=== PATIENT | male | born 1950 | race Caucasian/White ===

== ENCOUNTER 2018-09-15 09:52 | Outpatient (CLI) | payer MEDICARE, OTHER ==
[2018-09-15] MEDS ORDERED: CT SWABBABLE VALVE TRANS SET 1 EA INFUS.SET MC ONE (10:30)
[2018-09-15] MEDS ORDERED: IOHEXOL-350 100 ML VIAL IV ONE (10:30)
[2018-09-15] MEDS ORDERED: IV NS 0.9% 250 ML IV ONE (10:31)
[2018-09-15] MEDS ORDERED: NITROGLYCERIN 0.4 MG/TAB BOTTLE ONE (11:07)
== END 2018-09-15 23:59 | disposition home or self-care (01) ==
LOC: CT 09:52
PROVIDERS: ATTEND Internal Medicine Interventional Cardiology
DX: I25.10 Atherosclerotic heart disease of native coronary artery without angina pectoris (principal); I10 Essential (primary) hypertension; E78.5 Hyperlipidemia, unspecified; I20.9 Angina pectoris, unspecified; I22.9 Subsequent ST elevation (STEMI) myocardial infarction of unspecified site; R06.09 Other forms of dyspnea
CPT/HCPCS: 75574; J7050; Q9967

== ENCOUNTER 2018-12-31 10:24 | Inpatient (IN) | payer MEDICARE, OTHER ==
[~2018-12-31] VITALS: Ht 175.3 cm; Wt 103.9 kg
[2018-12-31 10:58] LABS: BASOPHILS % (AUTO) 0.5 % (0.0-2.0); EOSINOPHILS % (AUTO) 2.1 % (0.0-6.0); HEMATOCRIT 45 % (39-51); HEMOGLOBIN 14.9 g/dL (13.5-17.5); LYMPHOCYTES # (AUTO) 2.3 /CMM (0.8-4.8); LYMPHOCYTES % (AUTO) 23.3 % (20.0-44.0); MEAN CORPUSCULAR HGB CONC 33 g/dl (31.0-36.0); MEAN CORPUSCULAR VOLUME 91 fL (80-96); MONOCYTES # (AUTO) 0.9 /CMM (0.1-1.30); MONOCYTES % (AUTO) 9.8 % (2.0-12.0); NEUTROPHILS # (AUTO) 6.2 /CMM (1.8-8.9); NEUTROPHILS % (AUTO) 64.3 % (43.0-81.0); PLATELET COUNT (AUTO) 184 /CMM (150-450); RED BLOOD CELL COUNT(AUTO) 4.94 MIL/uL (4.5-6.0); WHITE BLOOD COUNT (AUTO) 9.6 K/uL (4.3-11.0)
[2018-12-31] MEDS ORDERED: ALBUTEROL FS 2.5 MG/3 ML VIAL.NEB ONE (11:00)
[2018-12-31] MEDS ORDERED: ALBUTEROL FS 2.5 MG/3 ML VIAL.NEB CONTNEB ONE (11:00)
[2018-12-31] MEDS ORDERED: methylPREDNISolone SOD SUCC 125 MG/2ML VIAL IV ONE (11:00)
[2018-12-31] MEDS ORDERED: IPRATROPIUM NEB FS 0.5 MG/2.5 ML AMPUL.NEB ONE (11:00)
[2018-12-31] MEDS ORDERED: ACETAMINOPHEN ES 500 MG TABLET PO ONE (11:00)
[2018-12-31] MEDS ORDERED: IPRATROPIUM NEB FS 0.5 MG/2.5 ML AMPUL.NEB NEB ONE (11:00)
[2018-12-31 11:01] LABS: CALCIUM, SERUM 9.8 mg/dL (8.5-10.1); CARBON DIOXIDE 29 mmol/L (21-32); CHLORIDE 102 mmol/L (98-107); GLUCOSE 120 mg/dL (74-106); POTASSIUM 4.3 mmol/L (3.5-5.1); SODIUM SERUM 139 mmol/L (136-145); UREA NITROGEN, BLOOD 13 mg/dL (7-18)
[2018-12-31 11:19] LABS: ALANINE AMINOTRANSFERASE 27 U/L (12-78); ALBUMIN 3.9 g/dL (3.4-5.0); ALKALINE PHOSPHATASE 62 U/L (46-116); ASPARTATE AMINOTRANSFERASE 17 U/L (15-37); BILIRUBIN,DIRECT 0.2 mg/dL (0.0-0.2); BILIRUBIN,TOTAL 0.8 mg/dL (0.2-1.0); TOTAL PROTEIN, SERUM 7.5 g/dL (6.4-8.2)
[2018-12-31] MEDS ORDERED: methylPREDNISolone SOD SUCC 125 MG/2ML VIAL ONE (11:21)
[2018-12-31] MEDS ORDERED: ACETAMINOPHEN 120 MG/SUPP.RECT RC ONE (11:21)
[2018-12-31] MEDS ORDERED: ACETAMINOPHEN ES 500 MG TABLET ONE (11:22)
--- NOTE | 2018-12-31 11:29 | NUR ---
Status quo NO obvious distress. Updated with plan of care awaiting admission/bed assignment
--- NOTE | 2018-12-31 11:43 | NUR ---
Nurse Knowledge Exchange with SHONA Gomez. No acute changes from initial assessment. No obvious distress both pt and family aware of plan of care. VS
[2018-12-31] MEDS ORDERED: ASPIRIN 81 MG TAB.CHEW PO ONE (12:00)
--- NOTE | 2018-12-31 12:05 | NUR ---
ADMISSION NOTE PT WAS RECEIVED AT THIS TIME. A/O X4, AMBULATORY, IV PATENT AND INTACT, NO S/S OF PAIN OR DISTRESS NOTED AT THIS TIME, SKIN DRY AND INTACT. BELONGINGS NOTED, FAMILY PRESENT AT BEDSIDE, SAFETY PRECAUTIONS IN PLACE, CALL LIGHT WITHIN REACH, WILL MONITOR ACCORDINGLY
[2018-12-31] MEDS ORDERED: MAGNESIUM HYDROXIDE 30 ML UDC PO PRN (13:30)
[2018-12-31] MEDS ORDERED: ONDANSETRON HCL/PF 4 MG/2 ML VIAL IVP PRN (13:30)
[2018-12-31] MEDS ORDERED: MAG HYDROX/AL HYDROX/SIMETH 30 ML UDC PO PRN (13:30)
[2018-12-31] MEDS ORDERED: ACETAMINOPHEN 325 MG TABLET PO PRN (13:30)
[2018-12-31] MEDS ORDERED: Z GUARD REMEDY 2 OZ OINT TP PRN (13:30)
[2018-12-31] MEDS ORDERED: ZOLPIDEM TARTRATE 5 MG TABLET PO PRN (13:30)
[2018-12-31] MEDS ORDERED: ASPI-1152 PO (13:39)
[2018-12-31] MEDS ORDERED: ROSU20TA31 PO (13:39)
[2018-12-31] MEDS ORDERED: CLOP75TA15 PO (13:39)
[2018-12-31] MEDS ORDERED: ERGO500040 PO (13:39)
[2018-12-31] MEDS ORDERED: CYAN500T2 PO (13:39)
[2018-12-31] MEDS ORDERED: METO-357 PO (13:39)
[2018-12-31] MEDS ORDERED: FOLI1TAB16 PO (13:39)
[2018-12-31] MEDS ORDERED: DILT120C51 PO (13:39)
[2018-12-31] MEDS: IPRATROPIUM NEB FS 0.5 MG/2.5 ML AMPUL.NEB NEB SCH ×3 (15:41→23:41)
[2018-12-31] MEDS: ALBUTEROL FS 2.5 MG/3 ML VIAL.NEB NEB SCH ×3 (15:41→23:41)
[2018-12-31 16:00] VITALS: BP 131/73
[2018-12-31] MEDS ORDERED: CLOPIDOGREL BISULFATE 75 MG TABLET PO SCH (17:00)
--- NOTE | 2018-12-31 18:20 | NUR ---
RN CLOSING NOTE PT IN BED AT LOWEST AND LOCKED POSITION WITH SIDE RAILS UP X2, A/O X4, BREATHING EVEN AND UNLABORED ON 2L VIA NC, NO COMPLAINTS OF PAIN OR DISTRESS NOTED, PT IS AMBULATORY, IV IS PATENT AND INTACT, MEDS WERE RECONCILED, SAFETY PRECAUTIONS IN PLACE, CALL LIGHT WITHIN REACH, WILL ENDORSE TO MANAGER ASSISTED LIVING RN FOR ALVARO.
--- NOTE | 2018-12-31 19:15 | NUR ---
DIRECTOR PRODUCT DEVELOPMENT NOTES RECEIVED ON BED A/O X3-4,NO SOB,O2 IN USED AT 2L/NC TO KEEP O2 SAT ABOVE 90%.SALINE LOCK RIGHT AC INTACT AND PATENT.CLAIMED CHEST PAIN ON AND OFF, 3 ON PAIN SCALE AT THE MOMENT.CALL LIGHT IN REACH,NEEDS ANTICIPATED.
[2018-12-31 20:00] VITALS: BP 132/61
[2018-12-31 20:01] VITALS: BP 132/61
[2018-12-31] MEDS: HYDROCODONE/APAP 5/325MG 1 EACH TABLET PO PRN (20:21)
--- NOTE | 2018-12-31 20:21 | NUR ---
RAILROAD DINING CAR STEWARD/STEWARDESS NOTES SR-90 ON TELE MONITOR,C/O LEFT SIDE CHEST PAIN 7/10 ON PAIN SCALE.MEDICATED WITH NORCO 5/325MG,1TAB PO ORDERED.
[2019-01-01] VITALS: BP 127/59
[2019-01-01] MEDS: HYDROCODONE/APAP 5/325MG 1 EACH TABLET PO PRN (02:43)
--- NOTE | 2019-01-01 02:43 | NUR ---
DATA BASE ADMINISTRATOR NOTES AWAKE,C/O LEFT CHEST PAIN ABOUT 6/10 ON PAIN SCALE WHEN HE BREATH,SR-93 ON TELE MONITOR, BLOOD PRESSURE 137/68,PULSE-86. MEDICATED WITH NORCO 5/325.1 TAB PO ORDERED FOR MODERATE PAIN.
[2019-01-01] MEDS: IPRATROPIUM NEB FS 0.5 MG/2.5 ML AMPUL.NEB NEB SCH ×3 (03:42→11:10)
[2019-01-01] MEDS: ALBUTEROL FS 2.5 MG/3 ML VIAL.NEB NEB SCH ×3 (03:42→11:10)
[2019-01-01 04:00] VITALS: BP 117/76
--- NOTE | 2019-01-01 06:12 | NUR ---
FORK TRUCK DRIVER NOTES ON BED A/O X4,PAIN TOLERABLE AT THIS TIME,PAIN MANAGEMENT EFFECTIVE.O2 IN USED ON AND OFF TO KEEP O2 SAT ABOVE 90%.IN NO ACUTE DISTRESS.WILL ENDORSE TO DAY NURSE FOR ALVARO.
[2019-01-01 06:36] LABS: BASOPHILS % (AUTO) 0.2 % (0.0-2.0); HEMATOCRIT 41 % (39-51); HEMOGLOBIN 13.7 g/dL (13.5-17.5); LYMPHOCYTES # (AUTO) 0.7 /CMM (0.8-4.8); LYMPHOCYTES % (AUTO) 6.2 % (20.0-44.0); MEAN CORPUSCULAR HGB CONC 34 g/dl (31.0-36.0); MEAN CORPUSCULAR VOLUME 89 fL (80-96); MONOCYTES # (AUTO) 0.5 /CMM (0.1-1.30); NEUTROPHILS # (AUTO) 10.7 /CMM (1.8-8.9); NEUTROPHILS % (AUTO) 89.6 % (43.0-81.0); PLATELET COUNT (AUTO) 167 /CMM (150-450); RED BLOOD CELL COUNT(AUTO) 4.56 MIL/uL (4.5-6.0)
[2019-01-01 06:42] LABS: CALCIUM, SERUM 9.7 mg/dL (8.5-10.1); CREATININE 1.2 mg/dL (0.6-1.3); MAGNESIUM 1.9 mg/dL (1.8-2.4); PHOSPHORUS 2.7 mg/dL (2.5-4.9)
--- NOTE | 2019-01-01 07:31 | NUR ---
HOT METAL CRANE OPERATOR OPENING NOTE RECEIVED PT IN BED, AWAKE AND VERBALLY RESPONSIVE; A/O X4. IN NO ANY PAIN OR DISTRESS AT THIS TIME. ON TELEMONITORING WITH CURRENT READING OF NORMAL SINUS RHYTHM AND HEART RHYTHM AT 80S, NO COMPLAIN OF CARDIAC DISTRESS VOICED. ON OXYGEN AT 2LPM, WITHOUT SOB NOTED. PIV TO RAC G20, INTACT AND PATENT. SAFETY MEASURES OBSERVED, BED LOW AND LOCKED POSITION WITH SIDERAILS UP X2. CALL LIGHT KEPT WITHIN REACH. WILL CONTINUE TO MONITOR.
[2019-01-01 08:00] VITALS: BP 128/75
[2019-01-01] MEDS ORDERED: IPRA0.2S9 NEB (08:39)
[2019-01-01] MEDS ORDERED: ALBUT2 NEB (08:39)
[2019-01-01] MEDS ORDERED: PRED50TA PO (08:39)
[2019-01-01] MEDS ORDERED: AZIT250T13 PO (08:43)
[2019-01-01 08:48] VITALS: BP 128/75
[2019-01-01] MEDS ORDERED: ASPIRIN EC 81 MG TABLET.DR PO SCH (09:00)
[2019-01-01] MEDS ORDERED: methylPREDNISolone SOD SUCC 125 MG/2ML VIAL IV SCH (09:00)
[2019-01-01] MEDS ORDERED: CYANOCOBALAMIN 500 MCG TABLET PO SCH (09:00)
[2019-01-01] MEDS ORDERED: METOPROLOL SUCCINATE 50 MG TAB.SR.24H PO SCH (09:00)
[2019-01-01] MEDS ORDERED: DILTIAZEM HCL CD 120 MG PO SCH (09:00)
[2019-01-01] MEDS ORDERED: ATORVASTATIN 40 MG TABLET PO SCH (09:00)
[2019-01-01] MEDS ORDERED: FOLIC ACID 1 MG TABLET PO SCH (09:00)
--- NOTE | 2019-01-01 09:45 | NUR ---
RN NOTES PT SEEN AND EVALUATED BY DR MONROE WITH ORDERS TO DO ECHOCARDIOGRAM AND DC TELEMONITORING.
--- NOTE | 2019-01-01 11:41 | NUR ---
HANDKERCHIEF SAMPLE CLERK NOTES PATIENT DISCHARGED HOME IN STABLE CONDITION. A/O X4 AND VERBALLY RESPONSIVE. MD GAVE ORDER FOR DISCHARGE TO HOME WITH PRESCRIPTIONS NOTED FOR ORAL ANTIBIOTIC, PREDNISONE AND BREATHING TREATMENTS. SKIN IS INTACT. DISCHARGE INSTRUCTIONS GIVEN AND VERBALIZED UNDERSTANDING. ALL BELONGINGS ACCOUNTED FOR AND SIGNED FORM. ALL NEEDS ATTENDED WELL. VS STABLE. NO RESPIRATORY AND CARDIAC DISTRESS NOTED. NO PAIN VERBALIZED. AND LEFT THE FACILITY AT 1135 ESCORTED DOWN BY RN TO THE LOBBY. MD AND CHARGE NURSE AWARE OF DISCHARGE.
[2019-01-06] MEDS ORDERED: ERGOCALCIFEROL (VITAMIN D 2) 50,000 UNIT CAPSULE PO SCH (15:30)
== END 2019-01-01 11:30 | disposition home or self-care (01) | DRG 192 ==
LOC: ER 10:25 → TELE 11:49
PROVIDERS: ADMIT Family Medicine; ATTEND Family Medicine
DX: J44.1 Chronic obstructive pulmonary disease with (acute) exacerbation (principal); I25.10 Atherosclerotic heart disease of native coronary artery without angina pectoris; I10 Essential (primary) hypertension; E66.9 Obesity, unspecified; Z95.1 Presence of aortocoronary bypass graft; Z68.33 Body mass index [BMI] 33.0-33.9, adult; Z87.891 Personal history of nicotine dependence; Z95.5 Presence of coronary angioplasty implant and graft; R07.89 Other chest pain
CPT/HCPCS: 36415; 71045-TC; 80048-TC; 80061-TC; 80076-TC; 83735-TC; 83880; 84100-TC; 84484-TC; 85025-TC; 87040-TC; 87081-TC; 87400; 93307-TC; 94799-TC; G0378; J2930

== ENCOUNTER 2020-01-25 21:21 | Emergency (ER) | payer MEDICARE, OTHER ==
[~2020-01-25] VITALS: Ht 175.3 cm; Wt 95.3 kg
[~2020-01-25 21:21] MED LIST: ALBUT2 NEB; ASPI-1152 PO; AZIT250T13 PO; CLOP75TA15 PO; CYAN500T64 PO; DILT120C51 PO; ERGO500040 PO; FOLI1TAB16 PO; IPRA0.2S9 NEB; METO-357 PO; PRED50TA PO; ROSU20TA32 PO
--- NOTE | 2020-01-25 21:38 | NUR ---
BIBSELF C/O URINARY RETENTION X10 DAYS. -HEMATURIA, +DYSURIA, -FLANK PAIN RECENTLY FINISHED RX 7 DAY COURSE BACTRIM ON 01/22/20; PT TO BED 12, AWAKE, ALERT, -SOB, PLACED ON MONITOR, VSS, PENDING MD LUONG
[2020-01-25 22:00] LABS: APPEARANCE,URINE Clear (CLEAR); BILIRUBIN,URINE Negative (NEGATIVE); BLOOD, URINE Small Ery/uL (NEGATIVE); COLOR,URINE Yellow (YELLOW); KETONES,URINE Negative (NEGATIVE); LEUKOCYTE ESTERASE ,URINE Negative (NEGATIVE); NITRITE, URINE Negative (NEGATIVE); PROTEIN,URINE Trace mg/dl (NEGATIVE); UGLUCOSE Negative (NEGATIVE); UROBILINOGEN,URINE 0.2 EU/dL (0.2)
[2020-01-25 22:11] LABS: BACTERIA,URINE Rare /HPF (None Seen); SQUAMOUS EPITHELIAL CELL,UR Few /HPF (None Seen); WBC,URINE NONE SEEN /HPF (0-3)
[2020-01-25] MEDS ORDERED: LIDOCAINE 2% JEL UROJET 10 ML MM ONE (22:14)
--- NOTE | 2020-01-25 22:15 | NUR ---
UNABLE TO SUCCESSFULLY INSERT F/C, DR. SANCHEZ AWARE; PER , HE WILL DO NICOLE, THEN POSSIBLY CT SCAN
--- NOTE | 2020-01-26 01:30 | NUR ---
Patient discharged to home in stable condition. Written and verbal after care instructions given. Patient verbalizes understanding of instruction.IV removed. Catheter intact and site benign. Pressure and 4x4 applied to site. No bleeding noted.pT ambulatory with a steady gait
[2020-01-26 05:05] VITALS: BP 118/84
== END 2020-01-26 01:30 | disposition home or self-care (01) ==
LOC: ER 21:24
DX: R39.11 Hesitancy of micturition (principal); I10 Essential (primary) hypertension; Z95.5 Presence of coronary angioplasty implant and graft; Z79.82 Long term (current) use of aspirin; Z79.899 Other long term (current) drug therapy
CPT/HCPCS: 74176; 81001; 82962; 87086; 99284; J3490; 81000-TC

== ENCOUNTER 2024-02-29 11:19 | Inpatient (IN) | payer MEDICARE, OTHER ==
[~2024-02-29] VITALS: Ht 175.3 cm; Wt 98.4 kg
[~2024-02-29 11:19] MED LIST changes: -ASPI-1152 PO; +ASPI-1420 PO; -CYAN500T64 PO; +CYAN500T9 PO
[2024-02-29 11:48] LABS: BASOPHILS % (AUTO) 0.1 % (0.0-2.0); HEMATOCRIT 49 % (39-51); HEMOGLOBIN 16.5 g/dL (13.5-17.5); LYMPHOCYTES # (AUTO) 2.1 K/uL (0.8-4.8); LYMPHOCYTES % (AUTO) 9.2 % (20.0-44.0); MEAN CORPUSCULAR HEMOGLOBIN 30 PG (26.0-33.0); MEAN CORPUSCULAR HGB CONC 34 g/dl (31.0-36.0); MEAN CORPUSCULAR VOLUME 90 fL (80-96); MONOCYTES % (AUTO) 4.1 % (2.0-12.0); NEUTROPHILS # (AUTO) 20.1 K/uL (1.8-8.9); NEUTROPHILS % (AUTO) 86.6 % (43.0-81.0); PLATELET COUNT (AUTO) 137 K/uL (150-450); RED CELL DISTRIBUTION WIDTH 16.6 % (11.5-15.0); WHITE BLOOD COUNT (AUTO) 23.3 K/uL (4.3-11.0)
[2024-02-29 11:54] LABS: CALCIUM, SERUM 10.1 mg/dL (8.5-10.1); CARBON DIOXIDE 30 mmol/L (21-32); CHLORIDE 95 mmol/L (98-107); CREATININE 2.3 mg/dL (0.6-1.3); GLUCOSE 188 mg/dL (74-106); POTASSIUM 4.6 mmol/L (3.5-5.1); SODIUM SERUM 133 mmol/L (136-145); UREA NITROGEN, BLOOD 31 mg/dL (7-18)
[2024-02-29 12:07] LABS: ALANINE AMINOTRANSFERASE 44 U/L (12-78); ALBUMIN 3.7 g/dL (3.4-5.0); ALKALINE PHOSPHATASE 62 U/L (46-116); ASPARTATE AMINOTRANSFERASE 28 U/L (15-37); BILIRUBIN,DIRECT 0.7 mg/dL (0.0-0.2); BILIRUBIN,TOTAL 1.7 mg/dL (0.2-1.0); LIPASE 66 U/L (16-77); NT-PRO BNP 1303 pg/mL (0-125)
[2024-02-29] MEDS ORDERED: CEFTRIAXONE 1GM BAG (ER ONLY) 50 ML IV ONE (12:28)
[2024-02-29] MEDS: CEFTRIAXONE 1GM BAG (ER ONLY) 50 ML IV ONE (12:30)
[2024-02-29 13:06] LABS: LACTIC ACID 4.4 mmol/L (0.4-2.0)
[2024-02-29 13:11] LABS: INR 1.47 (0.91-1.10); PARTIAL THROMBOPLASTIN TIME 32.8 SEC (24.3-34.3); PROTHROMBIN TIME 15.2 SECS (9.2-11.1)
[2024-02-29] MEDS: AZITHROMYCIN 500 MG in IV D5W 250 ML IV ONE (13:15)
[2024-02-29] MEDS ORDERED: FINA5TAB4 PO (13:23)
[2024-02-29] MEDS ORDERED: CLOP75TA15 PO (13:23)
[2024-02-29] MEDS ORDERED: ASPI-1169 PO (13:23)
[2024-02-29] MEDS ORDERED: LINA5TAB PO (13:23)
[2024-02-29] MEDS ORDERED: MECL-159 PO (13:23)
[2024-02-29] MEDS ORDERED: ROSU20TA2 PO (13:23)
[2024-02-29] MEDS ORDERED: PANT40TA49 PO (13:23)
[2024-02-29] MEDS ORDERED: MIRT-91 PO (13:23)
[2024-02-29] MEDS ORDERED: ERGO500093 PO (13:23)
[2024-02-29] MEDS ORDERED: FLUT1BLS6 IH (13:23)
[2024-02-29] MEDS ORDERED: ICOS1CAP PO (13:23)
[2024-02-29] MEDS ORDERED: CLON0.1T PO (13:23)
[2024-02-29] MEDS ORDERED: LINA145C PO (13:23)
[2024-02-29 13:45] LABS: APPEARANCE,URINE Clear (CLEAR); BILIRUBIN,URINE MODERATE (NEGATIVE); BLOOD, URINE Negative Ery/uL (NEGATIVE); COLOR,URINE ORANGE (YELLOW); KETONES,URINE Trace mg/dL (NEGATIVE); LEUKOCYTE ESTERASE ,URINE Negative (NEGATIVE); NITRITE, URINE Positive (NEGATIVE); PROTEIN,URINE 100 mg/dl (NEGATIVE); UGLUCOSE Negative (NEGATIVE)
[2024-02-29 13:59] LABS: ADD URINE CULTURE YES; BACTERIA,URINE Moderate /HPF (None Seen); SQUAMOUS EPITHELIAL CELL,UR Few /HPF (None Seen); URINE AMORPHOUS URATE Moderate /HPF (None Seen)
[2024-02-29] MEDS ORDERED: DEXTROSE 50%-WATER 50 ML DISP.SYRIN IV PRN (14:00)
[2024-02-29] MEDS ORDERED: MORPHINE SULFATE INJ 2 MG/ML DISP.SYRIN IV PRN (14:00)
[2024-02-29] MEDS ORDERED: MAG HYDROX/AL HYDROX/SIMETH 30 ML UDC PO PRN (14:00)
[2024-02-29] MEDS ORDERED: MIRTAZAPINE 15 MG TABLET PO PRN (14:00)
[2024-02-29] MEDS ORDERED: ALBUTEROL FS 2.5 MG/3 ML VIAL.NEB NEB PRN (14:00)
[2024-02-29] MEDS ORDERED: LINZESS 145 MCG XX SCH (14:00)
[2024-02-29] MEDS ORDERED: HYDROCODONE/APAP 5/325MG TABLET PO PRN (14:00)
[2024-02-29] MEDS ORDERED: MECLIZINE HCL 25 MG TABLET PO PRN (14:00)
[2024-02-29] MEDS ORDERED: CLONIDINE HCL 0.1 MG TABLET PO PRN (14:00)
[2024-02-29] MEDS ORDERED: IPRATROPIUM NEB FS 0.5 MG/2.5 ML AMPUL.NEB NEB PRN (14:00)
[2024-02-29] MEDS ORDERED: PANTOPRAZOLE 40 MG TABLET.DR PO PRN (14:00)
[2024-02-29] MEDS ORDERED: ONDANSETRON HCL/PF 4 MG/2 ML VIAL IVP PRN (14:00)
[2024-02-29] MEDS ORDERED: Z GUARD REMEDY 4 OZ OINT TP PRN (14:00)
[2024-02-29] MEDS ORDERED: ACETAMINOPHEN 325 MG TABLET PO PRN (14:00)
[2024-02-29] MEDS: AMIODARONE 150 MG in IV D5W 100 ML IV ONE (14:48)
[2024-02-29] MEDS: AMIODARONE 450 MG in IV D5W 241 ML IV PRN (15:00)
[2024-02-29 17:00] VITALS: BP 151/88; TEMP 98.2; O2SAT 95
[2024-02-29 17:06] VITALS: BP 151/88; TEMP 98.2; O2SAT 94
[2024-02-29] MEDS: DOXYCYCLINE 100 MG in IV D5W 100 ML IV SCH (17:18)
[2024-02-29] MEDS: BLOOD SUGAR DIAGNOSTIC 1 EACH STRIP IN SCH (18:01)
[2024-02-29] MEDS: INSULIN REGULAR, HUMAN 100 UNIT/ML 3 ML VIAL SQ PRN (18:03)
[2024-02-29] MEDS: APIXABAN 2.5 MG TABLET PO SCH (18:04)
[2024-02-29 18:32] LABS: MAGNESIUM 1.5 mg/dL (1.8-2.4); PHOSPHORUS 4.5 mg/dL (2.5-4.9)
[2024-02-29 18:44] LABS: THYROID STIMULATING HORMONE 3.388 uIU/mL (0.358-3.74)
[2024-02-29] MEDS: CEFEPIME 1 GM in IV D5W 50 ML IV SCH (18:48)
[2024-03-01] VITALS (8 sets, daily range): BP systolic 112–147; BP diastolic 73–83; TEMP 97.8–98; O2SAT 93–98
[2024-03-01 06:55] LABS: BASOPHILS % (AUTO) 0.1 % (0.0-2.0); EOSINOPHILS % (AUTO) 0.1 % (0.0-6.0); HEMATOCRIT 45 % (39-51); HEMOGLOBIN 15.3 g/dL (13.5-17.5); LYMPHOCYTES # (AUTO) 1.5 K/uL (0.8-4.8); LYMPHOCYTES % (AUTO) 7.9 % (20.0-44.0); MEAN CORPUSCULAR HEMOGLOBIN 30 PG (26.0-33.0); MEAN CORPUSCULAR HGB CONC 34 g/dl (31.0-36.0); MEAN CORPUSCULAR VOLUME 89 fL (80-96); MONOCYTES # (AUTO) 0.7 K/uL (0.1-1.30); MONOCYTES % (AUTO) 3.8 % (2.0-12.0); NEUTROPHILS # (AUTO) 16.7 K/uL (1.8-8.9); NEUTROPHILS % (AUTO) 88.1 % (43.0-81.0); PLATELET COUNT (AUTO) 114 K/uL (150-450); RED BLOOD CELL COUNT(AUTO) 5.07 MIL/uL (4.5-6.0); RED CELL DISTRIBUTION WIDTH 16.7 % (11.5-15.0)
[2024-03-01 07:46] LABS: ALANINE AMINOTRANSFERASE 28 U/L (12-78); ALBUMIN 2.8 g/dL (3.4-5.0); ALKALINE PHOSPHATASE 65 U/L (46-116); ASPARTATE AMINOTRANSFERASE 22 U/L (15-37); CARBON DIOXIDE 23 mmol/L (21-32); CHLORIDE 95 mmol/L (98-107); CREATININE 1.7 mg/dL (0.6-1.3); GLUCOSE 158 mg/dL (74-106); MAGNESIUM 1.8 mg/dL (1.8-2.4); POTASSIUM 4.1 mmol/L (3.5-5.1); SODIUM SERUM 131 mmol/L (136-145); TOTAL PROTEIN, SERUM 7.3 g/dL (6.4-8.2); UREA NITROGEN, BLOOD 41 mg/dL (7-18)
[2024-03-01 08:37] LABS: HDL CHOLESTEROL 26 mg/dL (40-60); LDL 24 mg/dL (0-99); THYROID STIMULATING HORMONE 1.792 uIU/mL (0.358-3.74); TRIGLYCERIDES 140 mg/dL (30-150)
[2024-03-01] MEDS: FINASTERIDE (5 MG) 5 MG TABLET PO SCH (08:43)
[2024-03-01] MEDS: ASPIRIN 81 MG TAB.CHEW PO SCH (08:43)
[2024-03-01 08:47] LABS: CHOLESTEROL 88 mg/dL (<200)
[2024-03-01] MEDS ORDERED: DILTIAZEM HCL CD 120 MG PO SCH (09:00)
[2024-03-01] MEDS: AMIODARONE HCL 200 MG TABLET PO SCH ×2 (09:00→21:20)
[2024-03-01] MEDS: METOPROLOL SUCCINATE 50 MG TAB.SR.24H PO SCH (09:01)
[2024-03-01] MEDS: CLOPIDOGREL BISULFATE 75 MG TABLET PO SCH (09:01)
[2024-03-01] MEDS: LINAGLIPTIN 5 MG TABLET PO SCH (09:01)
[2024-03-01] MEDS: PANTOPRAZOLE 40 MG TABLET.DR PO SCH (09:02)
[2024-03-01] MEDS: ATORVASTATIN 40 MG TABLET PO SCH (09:06)
[2024-03-01] MEDS ORDERED: ALBUTEROL FS 2.5 MG/3 ML VIAL.NEB NEB PRN (09:30)
[2024-03-01] MEDS: TRELEGY ELLIPTA INH SCH (09:39)
[2024-03-01] MEDS: methylPREDNISolone SOD SUCC 125 MG/2ML VIAL IV SCH (11:18)
[2024-03-01] MEDS: MAGNESIUM HYDROXIDE 30 ML UDC PO PRN (18:33)
[2024-03-01] MEDS: IPRATROPIUM NEB FS 0.5 MG/2.5 ML AMPUL.NEB NEB SCH (20:17)
[2024-03-02] VITALS (16 sets, daily range): BP systolic 141–163; BP diastolic 78–93; TEMP 97.5–97.9; O2SAT 92–99
[2024-03-02 06:59] LABS: HEMATOCRIT 43 % (39-51); HEMOGLOBIN 14.8 g/dL (13.5-17.5); LYMPHOCYTES # (AUTO) 0.8 K/uL (0.8-4.8); LYMPHOCYTES % (AUTO) 5.3 % (20.0-44.0); MEAN CORPUSCULAR HEMOGLOBIN 31 PG (26.0-33.0); MEAN CORPUSCULAR HGB CONC 34 g/dl (31.0-36.0); MEAN CORPUSCULAR VOLUME 89 fL (80-96); MONOCYTES # (AUTO) 0.5 K/uL (0.1-1.30); MONOCYTES % (AUTO) 3.3 % (2.0-12.0); NEUTROPHILS # (AUTO) 13.8 K/uL (1.8-8.9); NEUTROPHILS % (AUTO) 91.4 % (43.0-81.0); PLATELET COUNT (AUTO) 138 K/uL (150-450); RED BLOOD CELL COUNT(AUTO) 4.84 MIL/uL (4.5-6.0); RED CELL DISTRIBUTION WIDTH 16.7 % (11.5-15.0); WHITE BLOOD COUNT (AUTO) 15.1 K/uL (4.3-11.0)
[2024-03-02 07:44] LABS: ALANINE AMINOTRANSFERASE 50 U/L (12-78); ALBUMIN 2.5 g/dL (3.4-5.0); ALKALINE PHOSPHATASE 77 U/L (46-116); ASPARTATE AMINOTRANSFERASE 35 U/L (15-37); BILIRUBIN,TOTAL 0.5 mg/dL (0.2-1.0); CALCIUM, SERUM 10.5 mg/dL (8.5-10.1); CARBON DIOXIDE 26 mmol/L (21-32); CHLORIDE 99 mmol/L (98-107); CREATINE KINASE, TOTAL 41 U/L (39-308); CREATININE 1.7 mg/dL (0.6-1.3); GLUCOSE 346 mg/dL (74-106); MAGNESIUM 2.4 mg/dL (1.8-2.4); PHOSPHORUS 3.1 mg/dL (2.5-4.9); POTASSIUM 4.5 mmol/L (3.5-5.1); SODIUM SERUM 132 mmol/L (136-145); TOTAL PROTEIN, SERUM 7.3 g/dL (6.4-8.2); UREA NITROGEN, BLOOD 53 mg/dL (7-18)
[2024-03-02] MEDS: DOXYCYCLINE HYCLATE (100 MG) 100 MG TABLET PO SCH (21:20)
[2024-03-03] VITALS (9 sets, daily range): BP systolic 135–150; BP diastolic 70–77; TEMP 97.8–98.7; O2SAT 95–98
[2024-03-03 10:41] LABS: BASOPHILS % (AUTO) 0.2 % (0.0-2.0); HEMATOCRIT 45 % (39-51); HEMOGLOBIN 14.7 g/dL (13.5-17.5); LYMPHOCYTES # (AUTO) 1.3 K/uL (0.8-4.8); LYMPHOCYTES % (AUTO) 7.8 % (20.0-44.0); MEAN CORPUSCULAR HEMOGLOBIN 29 PG (26.0-33.0); MEAN CORPUSCULAR HGB CONC 33 g/dl (31.0-36.0); MEAN CORPUSCULAR VOLUME 89 fL (80-96); MONOCYTES % (AUTO) 6.1 % (2.0-12.0); NEUTROPHILS # (AUTO) 14.5 K/uL (1.8-8.9); NEUTROPHILS % (AUTO) 85.9 % (43.0-81.0); PLATELET COUNT (AUTO) 191 K/uL (150-450); RED BLOOD CELL COUNT(AUTO) 5.01 MIL/uL (4.5-6.0); RED CELL DISTRIBUTION WIDTH 16.7 % (11.5-15.0); WHITE BLOOD COUNT (AUTO) 16.8 K/uL (4.3-11.0)
[2024-03-03] MEDS ORDERED: DOXY100C2 PO (10:59)
[2024-03-03] MEDS ORDERED: ALBUT2 NEB (10:59)
[2024-03-03] MEDS ORDERED: AMOX-430 PO (10:59)
[2024-03-03] MEDS ORDERED: IPRA0.2S9 NEB (10:59)
[2024-03-03] MEDS ORDERED: AMIO200T5 PO (10:59)
[2024-03-03] MEDS ORDERED: APIX2.5T PO (10:59)
[2024-03-03] MEDS ORDERED: PRED20TA PO (10:59)
[2024-03-03 11:09] LABS: ALANINE AMINOTRANSFERASE 83 U/L (12-78); ALBUMIN 2.7 g/dL (3.4-5.0); ALKALINE PHOSPHATASE 81 U/L (46-116); ASPARTATE AMINOTRANSFERASE 43 U/L (15-37); BILIRUBIN,TOTAL 0.4 mg/dL (0.2-1.0); CALCIUM, SERUM 10.5 mg/dL (8.5-10.1); CARBON DIOXIDE 30 mmol/L (21-32); CHLORIDE 100 mmol/L (98-107); CREATININE 1.7 mg/dL (0.6-1.3); GLUCOSE 242 mg/dL (74-106); MAGNESIUM 2.3 mg/dL (1.8-2.4); PHOSPHORUS 2.6 mg/dL (2.5-4.9); POTASSIUM 5.2 mmol/L (3.5-5.1); SODIUM SERUM 133 mmol/L (136-145); TOTAL PROTEIN, SERUM 7.4 g/dL (6.4-8.2); UREA NITROGEN, BLOOD 64 mg/dL (7-18)
[2024-03-03 12:10] LABS: PTH, INTACT 70 pg/mL (15-65)
[2024-03-04] MEDS ORDERED: ERGOCALCIFEROL (VITAMIN D 2) 50,000 UNIT CAPSULE PO SCH (08:00)
[2024-03-05 09:09] LABS: *SPE A/G RATIO 0.8 (0.7-1.7); *SPE ALBUMIN 2.8 g/dL (2.9-4.4); *SPE ALPHA-1-GLOBULIN 0.5 g/dL (0.0-0.4); *SPE ALPHA-2-GLOBULIN 1.1 g/dL (0.4-1.0); *SPE GLOBULIN, TOTAL 3.4 g/dL (2.2-3.9); *SPE M-SPIKE Not Observed g/dL (Not Observed); *SPE PROTEIN TOTAL 6.2 g/dL (6.0-8.5); *SPEGAMMA GLOBULIN 0.7 g/dL (0.4-1.8)
== END 2024-03-03 12:26 | disposition home or self-care (01) | DRG 193 ==
LOC: ER 11:19 → TELE1 16:16 → TELE-TD 17:02 → TELE1 03-01 08:51 → MEDSG1 03-03 00:33
PROVIDERS: ADMIT Nurse Practitioner Acute Care; ATTEND Nurse Practitioner Acute Care
PROC: 05HB33Z Insertion of Infusion Device into Right Basilic Vein, Percutaneous Approach (ICD-10-PCS; principal; 2024-03-01)
DX: J15.9 Unspecified bacterial pneumonia (principal); J96.21 Acute and chronic respiratory failure with hypoxia; I13.0 Hypertensive heart and chronic kidney disease with heart failure and stage 1 through stage 4 chronic kidney disease, or unspecified chronic kidney disease; J44.1 Chronic obstructive pulmonary disease with (acute) exacerbation; J44.0 Chronic obstructive pulmonary disease with (acute) lower respiratory infection; N17.9 Acute kidney failure, unspecified; E87.20 Acidosis, unspecified; E87.1 Hypo-osmolality and hyponatremia; J45.901 Unspecified asthma with (acute) exacerbation; N13.6 Pyonephrosis; I48.91 Unspecified atrial fibrillation; Z20.822 Contact with and (suspected) exposure to COVID-19; E78.5 Hyperlipidemia, unspecified; N18.9 Chronic kidney disease, unspecified; Z95.5 Presence of coronary angioplasty implant and graft; I25.10 Atherosclerotic heart disease of native coronary artery without angina pectoris; I50.9 Heart failure, unspecified; Z79.51 Long term (current) use of inhaled steroids; Z79.899 Other long term (current) drug therapy; Z79.82 Long term (current) use of aspirin; Z79.02 Long term (current) use of antithrombotics/antiplatelets; Z82.49 Family history of ischemic heart disease and other diseases of the circulatory system; Z83.3 Family history of diabetes mellitus; Z79.84 Long term (current) use of oral hypoglycemic drugs; Z79.4 Long term (current) use of insulin; Z95.1 Presence of aortocoronary bypass graft; Z68.33 Body mass index [BMI] 33.0-33.9, adult; I25.2 Old myocardial infarction; E11.22 Type 2 diabetes mellitus with diabetic chronic kidney disease; E66.9 Obesity, unspecified; N40.0 Benign prostatic hyperplasia without lower urinary tract symptoms; Z87.891 Personal history of nicotine dependence; M89.8X9 Other specified disorders of bone, unspecified site; K80.20 Calculus of gallbladder without cholecystitis without obstruction; K76.0 Fatty (change of) liver, not elsewhere classified; G47.33 Obstructive sleep apnea (adult) (pediatric); E80.6 Other disorders of bilirubin metabolism
CPT/HCPCS: 36410; 36415; 71045-TC; 76705-TC; 76770-TC; 80048-TC; 80053-TC; 80061-TC; 80076-TC; 81001; 82550-TC; 82962-TC; 83605-TC; 83690-TC; 83735-TC; 83880; 83970; 84100-TC; 84155; 84165; 84439-TC; 84443-TC; 84484-TC; 85025-TC; 85730-TC; 87040-TC; 87086-TC; 93307-TC; 94799-TC; A4223; G0378; J0282; J0456; J0692; J0696; J1815; J2930; J3490; J7050; J7060

== ENCOUNTER 2024-03-04 18:34 | Emergency (ER) | payer MEDICARE, OTHER ==
[~2024-03-04] VITALS: Ht 175.3 cm; Wt 102.1 kg
[~2024-03-04 18:34] MED LIST changes: +AMIO200T5 PO; +AMOX-430 PO; +APIX2.5T PO; +ASPI-1169 PO; -ASPI-1420 PO; -AZIT250T13 PO; +CLON0.1T PO; -CYAN500T9 PO; -DILT120C51 PO; +DOXY100C2 PO; -ERGO500040 PO; +ERGO500093 PO; +FINA5TAB4 PO; +FLUT1BLS6 IH; -FOLI1TAB16 PO; +ICOS1CAP PO; +LINA145C PO; +LINA5TAB PO; +MECL-159 PO; +MIRT-91 PO; +PANT40TA49 PO; +PRED20TA PO; -PRED50TA PO; +ROSU20TA2 PO; -ROSU20TA32 PO
[2024-03-04] MEDS ORDERED: INSULIN REGULAR, HUMAN 100 UNIT/ML 10 ML VIAL ONE ×2 (19:07→20:44)
[2024-03-04] MEDS: INSULIN REGULAR, HUMAN 100 UNIT/ML 10 ML VIAL SQ ONE ×2 (19:11→20:47)
[2024-03-04 23:03] VITALS: BP 132/80; TEMP 98.7; O2SAT 98
== END 2024-03-04 23:04 | disposition home or self-care (01) ==
LOC: ER 18:34
DX: E11.65 Type 2 diabetes mellitus with hyperglycemia (principal); I11.0 Hypertensive heart disease with heart failure; I50.9 Heart failure, unspecified; E78.5 Hyperlipidemia, unspecified; I48.91 Unspecified atrial fibrillation; J44.9 Chronic obstructive pulmonary disease, unspecified; Z79.899 Other long term (current) drug therapy
CPT/HCPCS: 99283; 82962 ×2; J1815 ×2